=== PATIENT | male | born 1985 | race Caucasian/White ===

== ENCOUNTER 2018-02-11 12:38 | Emergency (ER) | payer OTHER ==
[~2018-02-11] VITALS: Ht 167.6 cm; Wt 68.2 kg
[~2018-02-11 12:38] MED LIST: CLON.5 PO; DIVA500T52 PO; OLAN10TA3 PO; VITAD1000 PO
[2018-02-11 13:51] VITALS: BP 134/82
== END 2018-02-11 14:00 | disposition home or self-care (01) ==
LOC: EMS 12:40
DX: F32.9 Major depressive disorder, single episode, unspecified (principal); F20.9 Schizophrenia, unspecified; F12.90 Cannabis use, unspecified, uncomplicated
CPT/HCPCS: 99284